=== PATIENT | female | born 1970 | race Caucasian/White ===

== ENCOUNTER 2018-10-16 17:03 | Emergency (ER) | payer MEDICARE, OTHER ==
[2018-10-16 17:10] VITALS: BMI 25.0
--- NOTE | 2018-10-16 17:49 | PDOC ---
History of Present Illness - General Chief Complaint: Pain, Acute Stated Complaint: ABDOMINAL PAIN Time Seen by Provider: 10/16/18 17:35 - History of Present Illness Initial Comments: 10/16/18 17:48 48 yo F with h/o DM, HLD, duodenal surgery, carcinoid tumor, left lung lobectomy , pacemaker placement, who p/w right flank pain. Patient reports 3 days of now stable, sharp, non pleuritic right >left flank pain, worse with supine positioning. Denies h/o similar presentation. On day 4/5 Oseltamavir for flu. Denies OTC analgesia for symptom control. Patient denies cough, wheezing, palpitations, N/V, F,C, CP, SOB, urinary complaints, hematuria, BPR, abdominal pain, diarrhea, constipation, lightheadedness, weakness, sensory changes. PMHx: as noted above. Denies h/o nephrolithiasis. ROS: as noted SHx: Distant smoking/tobacco history. Denies Etoh, IVDA Allergies: NKDA Past History - Past Medical History Allergies/Adverse Reactions: Allergies Allergy/AdvReac Type Severity Reaction Status Date / Time No Known Allergies Allergy Verified 10/16/18 17:10 Home Medications: Ambulatory Orders No Home Medications 05/20/12 Anemia: No Asthma: Yes Cancer: Yes (LUNG CA) Cardiac Disorders: No CVA: No COPD: No CHF: Yes (2000) Dementia: No Diabetes: No Dialysis: No GI Disorders: Yes (GASTRIC SLEEVE 2007) Disorders: No HTN: No Hypercholesterolemia: No Kidney Stones: No Liver Disease: No Seizures: No Thyroid Disease: No - Surgical History Abdominal Surgery: No Appendectomy: No Cardiac Surgery: No Cholecystectomy: No Lung Surgery: Yes (LEFT LUNG REMOVAL 1998) Neurologic Surgery: No Orthopedic Surgery: Yes (RIGHT KNEE ARTHROSCOPY) - Immunization History Td Vaccination: Yes TDAP Vaccination: No Immunization Up to Date: Yes - Suicide/Smoking/Psychosocial Hx Smoking Status: Yes Smoking History: Never smoked Years of Tobacco Use: 0 Have you smoked in the past 12 months: No Number of Cigarettes Smoked Daily: 0 Cigars Per Day: 0 Hx Alcohol Use: Yes (SOCIAL) Drug/Substance Use Hx: No Substance Use Type: None Hx Substance Use Treatment: No Review of Systems - Review of Systems Comments:: 10/16/18 17:48 GENERAL/CONSTITUTIONAL: No fever or chills. No weakness. HEAD, EYES, EARS, NOSE AND THROAT: No change in vision. No ear pain or discharge. No sore throat. CARDIOVASCULAR: No chest pain or shortness of breath RESPIRATORY: No cough, wheezing, or hemoptysis. GASTROINTESTINAL: No nausea, vomiting, diarrhea or constipation. GENITOURINARY: No dysuria, frequency, or change in urination. MUSCULOSKELETAL: + right flank ttp. No joint or muscle swelling or pain. No neck or back pain. SKIN: No rash NEUROLOGIC: No headache, vertigo, loss of consciousness, or change in strength/ sensation. ENDOCRINE: No increased thirst. No abnormal weight change HEMATOLOGIC/LYMPHATIC: No anemia, easy bleeding, or history of blood clots. ALLERGIC/IMMUNOLOGIC: No hives or skin allergy. *Physical Exam - Vital Signs Last Vital Signs Temp Pulse Resp BP Pulse Ox 97.4 F L 61 18 101/60 99 10/16/18 17:05 10/16/18 17:05 10/16/18 17:05 10/16/18 17:05 10/16/18 17:05 - Physical Exam Comments: 10/16/18 17:48 GENERAL: Awake, alert, and fully oriented, in no acute distress HEAD: No signs of trauma, normocephalic, atraumatic EYES: PERRLA, EOMI, sclera anicteric, conjunctiva clear ENT: Hearing grossly normal, nares patent, oropharynx clear without exudates. Moist mucosa NECK: Normal ROM, supple, no lymphadenopathy, JVD, or masses LUNGS: Diminished lung sound at Left LL base. No distress, speaks full sentences , clear to auscultation. HEART: Regular rate and rhythm, normal S1 and S2, no murmurs, rubs or gallops, peripheral pulses normal and equal bilaterally. ABDOMEN: + right CVA ttp. Soft, nontender, NDS, normoactive bowel sounds. No guarding, no rebound. No masses EXTREMITIES : Normal inspection, Normal range of motion, no edema. No clubbing or cyanosis. SKIN: Warm, Dry, normal turgor, no rashes or lesions noted Moderate Sedation - Procedure Monitoring Vital Signs: Procedure Monitoring Vital Signs Temperature 97.4 F L 10/16/18 17:05 Pulse Rate 61 10/16/18 17:05 Respiratory Rate 18 10/16/18 17:05 Blood Pressure 101/60 10/16/18 17:05 O2 Sat by Pulse Oximetry (%) 99 10/16/18 17:05 ED Treatment Course - LABORATORY CBC & Chemistry Diagram: 10/16/18 18:06 10/16/18 18:06 Medical Decision Making - Medical Decision Making 10/16/18 18:07 48 yo F with h/o DM, HLD, duodenal surgery, carcinoid tumor, left lung lobectomy , pacemaker placement, who p/w right flank pain. Vitals wnl, AF, A&Ox3. + Right CVA ttp. R/o obstructive uropathy vs. nephrolithaisis. Non toxic appearing, AF, absent urinary complaints. Low suspicion pyelonephritis. Will consider colitis, MSK related pain. ED Course: CBC,CMP, HCG, UA SPIRAL CT TORADOL, NS 10/16/18 18:10 10/16/18 19:19 CBC,CMP: Unremarkable HCG: Neg 10/16/18 19:37 BUN/CR: 13/0.6 UA: NEG 10/16/18 21:29 CT AP:Marked volume loss left hemithorax with mediastinal structures shifted to left. Neg hydronephrosis, no ureteral dilatation, no calculi. Patient pain improved Stable for d/c with return precautions. Advised to f/u with PMD. *DC/Admit/Observation/Transfer Diagnosis at time of Disposition: Flank pain - Discharge Dispostion Condition at time of disposition: Stable - Referrals - Patient Instructions Printed Discharge Instructions: DI for Abdominal Pain-Adult, DI for Flank Pain Additional Instructions: Please return to the emergency department with any new or worsening symptoms or concerns. Please follow up with your primary care physician within 72 hours. - Post Discharge Activity - Attestations Physician Attestion: 10/16/18 17:49 I attest to the information provided in this note.
[2018-10-16] MEDS ORDERED: SODIUM CHLORIDE 0.9% 500 ML INFUS.BAG IV ONE (18:01)
[2018-10-16] MEDS ORDERED: KETOROLAC TROMETHAMINE 30 MG/1 ML VIAL IVPUSH ONE (18:01)
[2018-10-16 18:22] LABS: BASO % 0.4 % (0-2.0); EOS % 1.5 % (0-4.5); HEMATOCRIT 39.2 % (32.4-45.2); HEMOGLOBIN 13.4 GM/dL (10.7-15.3); LYMPH % 21.4 % (8-40); MCH 28.9 pg (25.7-33.7); MCHC 34.3 g/dl (32.0-36.0); MEAN CELL VOLUME 84.2 fl (80-96); MEAN PLT VOLUME 9.5 fl (7.5-11.1); MONO % 18.3 % (3.8-10.2); NEUT % 58.4 % (42.8-82.8); PLATELET COUNT 151 K/MM3 (134-434); RBC 4.66 M/mm3 (3.60-5.2); RDW 14.1 % (11.6-15.6); WHITE BLOOD COUNT 4.4 K/mm3 (4.0-10.0)
[2018-10-16 18:35] LABS: URINE APPEARANCE SLCLOUDY; URINE BILIRUBIN NEGATIVE (<2.0 mg/dL); URINE COLOR AMBER; URINE GLUCOSE (UA) NEGATIVE (NEGATIVE); URINE KETONE NEGATIVE (NEGATIVE); URINE LEUK ESTERASE NEGATIVE (NEGATIVE); URINE NITRITE NEGATIVE (NEGATIVE); URINE PROTEIN 1+ (NEGATIVE); URINE UROBILINOGEN NEGATIVE mg/dL (0.2-1.0)
[2018-10-16 18:53] LABS: ALBUMIN 3.5 g/dl (3.4-5.0); ALK PHOS 65 U/L (45-117); ANION GAP 6 MMOL/L (8-16); BILIRUBIN,TOTAL 0.3 mg/dL (0.2-1); BLOOD UREA NITROGEN 13 mg/dL (7-18); CALCIUM 8.2 mg/dL (8.5-10.1); CHLORIDE 112 mmol/L (98-107); CO2 22 mmol/L (21-32); CREATININE 0.6 mg/dL (0.55-1.3); GLUCOSE,RANDOM 75 mg/dL (74-106); POTASSIUM 4.1 mmol/L (3.5-5.1); SGOT/AST 33 U/L (15-37); SGPT/ALT 23 U/L (13-61); SODIUM 139 mmol/L (136-145)
[2018-10-16 19:03] LABS: EPI CELLS RARE /HPF (FEW); URINE BACTERIA RARE /hpf (NONE SEEN); URINE HYALINE CAST 50 /lpf; URINE MUCUS MANY
--- NOTE | 2018-10-16 19:04 | PDOC ---
Attending Attestation - Resident Resident Name: JoshGusQuintin - ED Attending Attestation I have performed the following: I have examined & evaluated the patient, The case was reviewed & discussed with the resident, I agree w/resident's findings & plan - HPI HPI: 10/16/18 19:06 The patient is a 48 year old female, with a significant past medical history of DM, HLD, duodenal surgery, carcinoid tumor, left lung lobectomy, pacemaker placement, who presents to the emergency department with, 3 days of right left pain described as a pressure-like feeling. She was recently diagnosed with the flu on day 4 of 5 of Oseltamivir. She denies recent fevers, chills, headache or dizziness. She denies recent dysuria, frequency, urgency or hematuria. She denies recent chest pain or shortness of breath. Allergies: NKDA Past surgical history: None reported. Social history: Nonsmoker. Denies EtOH use and recreational drug use. <AnupambertkyungLorena - Last Filed: 10/16/18 22:29> - HPI HPI: Clarification- patient states her PMD placed her on tamiflu and abx when she presented to the office, however, she did not have a flu swab. She presents with flank pain and diarrhea. - Physicial Exam PE: GENERAL: Awake, alert, and fully oriented, in no acute distress HEAD: No signs of trauma EYES: PERRLA, EOMI, sclera anicteric, conjunctiva clear ENT: Auricles normal inspection, hearing grossly normal, nares patent, oropharynx clear without exudates. Moist mucosa NECK: Normal ROM, supple, no lymphadenopathy, JVD, or masses LUNGS: Breath sounds equal, clear to auscultation bilaterally. No wheezes, and no crackles HEART: Regular rate and rhythm, normal S1 and S2, no murmurs, rubs or gallops ABDOMEN: Soft, nontender, normoactive bowel sounds. No guarding, no rebound. No masses. +L CVAT. EXTREMITIES: Normal range of motion, no edema. No clubbing or cyanosis. No cords, erythema, or tenderness NEUROLOGICAL: Cranial nerves II through XII grossly intact. Normal speech, normal gait. Motor and sensation intact SKIN: Warm, Dry, normal turgor, no rashes or lesions noted. - Medical Decision Making Pt with history of prior weight loss surgery presenting with flank pain, diarrhea. She was placed on tamiflu and abx by her PMD, although the specific reasons were unclear. The diarrhea predated both medications. No recent abx otherwise, making CDiff less likely. Will obtain CT a/p to r/o nephrolithiasis. If she has another episode of diarrhea in ED, will obtain CDiff test. <Kailyn Ponce - Last Filed: 10/17/18 11:47> Attestations - Attestations 10/16/18 19:06 Documentation prepared by Lorena Cintron, acting as biomedical engineering internship for Kailyn Ponce MD. <Lorena Cintron - Last Filed: 10/16/18 22:29>
[2018-10-16] MEDS ORDERED: KETOROLAC TROMETHAMINE 30 MG/1 ML VIAL ONE (19:07)
--- NOTE | 2018-10-16 22:20 | PDOC ---
*Physical Exam - Vital Signs Last Vital Signs Temp Pulse Resp BP Pulse Ox 97.4 F L 61 18 101/60 99 10/16/18 17:05 10/16/18 17:05 10/16/18 17:05 10/16/18 17:05 10/16/18 17:05 ED Treatment Course - LABORATORY CBC & Chemistry Diagram: 10/16/18 18:06 10/16/18 18:06 - ADDITIONAL ORDERS Additional order review: Laboratory Results 10/16/18 10/16/18 10/16/18 18:06 18:06 18:06 Sodium 139 Potassium 4.1 Chloride 112 H Carbon Dioxide 22 Anion Gap 6 L BUN 13 Creatinine 0.6 Creat Clearance w eGFR > 60 Random Glucose 75 Calcium 8.2 L Total Bilirubin 0.3 AST 33 ALT 23 Alkaline Phosphatase 65 Total Protein 7.0 Albumin 3.5 Serum , Qual Negative Urine Color Odalis Urine Appearance Slcloudy Urine pH 5.0 Ur Specific [place] 1.025 Urine Protein 1+ H Urine Glucose (UA) Negative Urine Ketones Negative Urine Blood Negative Urine Nitrite Negative Urine Bilirubin Negative Urine Urobilinogen Negative Ur Leukocyte Esterase Negative Urine WBC (Auto) 12 Urine RBC (Auto) 3 Ur Epithelial Cells Rare Urine Bacteria Rare Hyaline Casts 50 Urine Mucus Many 10/16/18 18:06 RBC 4.66 MCV 84.2 MCHC 34.3 RDW 14.1 MPV 9.5 Neutrophils % 58.4 Lymphocytes % 21.4 Monocytes % 18.3 H D Eosinophils % 1.5 Basophils % 0.4 - Medications Given in the ED: ED Medications Discontinued Medications Generic Name Dose Route Start Last Admin Trade Name Alissa PRN Reason Stop Dose Admin Ketorolac Tromethamine 30 mg 10/16/18 18:01 10/16/18 19:05 Toradol Injection - IVPUSH 10/16/18 18:02 30 mg ONCE ONE Administration Sodium Chloride 1,000 ml 10/16/18 18:01 10/16/18 18:43 Normal Saline - IV 10/16/18 18:02 1,000 ml ONCE ONE Administration Medical Decision Making - Medical Decision Making 10/16/18 22:20 Patient Name: CARA TIERNEY THIS IS A PRELIMINARY REPORT FROM [facility] DATE OF SERVICE: 2018-10-16 19:43:10 IMAGES: 524 EXAM: CT abdomen/pelvis without contrast HISTORY: Right flank pain COMPARISON: None. FINDINGS: There is marked volume loss in the left hemithorax with shift of mediastinal structures to the left hemithorax. There is no hydronephrosis. There is no ureteral dilatation. There are no renal or ureteral calculi seen. There are multiple calcified gallstones. There are no secondary signs of cholecystitis. There is evidence of prior gastric bypass surgery. There is a low-density left adrenal nodule, likely adrenal adenoma. There is no evidence of intestinal obstruction. The appendix is normal in size. Urinary bladder is decompressed. There are no bladder calculi. There is an IUD in place. 1.8 cm left ovarian cyst noted *DC/Admit/Observation/Transfer Diagnosis at time of Disposition: Flank pain, Muscle pain - Discharge Dispostion Disposition: HOME Condition at time of disposition: Improved Decision to Admit order: No - Referrals - Patient Instructions Printed Discharge Instructions: DI for Flank Pain, DI for Muscle Strain Additional Instructions: Please return to the emergency department with any new or worsening symptoms or concerns. Please follow up with your primary care physician within 72 hours. - Post Discharge Activity
[2018-10-16] MEDS ORDERED: METHOCARBAMOL 500 MG TABLET PO ONE (22:32)
[2018-10-16] MEDS ORDERED: METHOCARBAMOL 500 MG TABLET ONE (22:34)
[2018-10-16 22:37] VITALS: BP 110/64; PULSE 65; TEMP 97.9
== END 2018-10-16 22:25 | disposition home or self-care (01) ==
LOC: JER 17:03
PROC: 3E0333Z Introduction of Anti-inflammatory into Peripheral Vein, Percutaneous Approach (ICD-10-PCS; principal; 2018-10-16)
PROC: 3E0337Z Introduction of Electrolytic and Water Balance Substance into Peripheral Vein, Percutaneous Approach (ICD-10-PCS; 2018-10-16)
DX: R10.31 Right lower quadrant pain (principal); R10.32 Left lower quadrant pain; E11.9 Type 2 diabetes mellitus without complications; E78.5 Hyperlipidemia, unspecified; Z95.0 Presence of cardiac pacemaker
CPT/HCPCS: 36415; 74176; 80053; 81003; 81015; 84703; 85025; 87086; 96361; 96374; 99285-25

== ENCOUNTER 2020-06-06 13:07 | Emergency (ER) | payer MEDICARE, OTHER ==
[2020-06-06 13:20] VITALS: BP 97/56; PULSE 86; TEMP 98.2; BMI 25.7
[2020-06-06 13:51] LABS: EPI CELLS 29 /uL (0-25.1); HYALINE CASTS 2 /uL (0-3.1); URINE APPEARANCE TURBID; URINE BACTERIA 3930 /uL (0-1359); URINE BILIRUBIN 1+ (NEGATIVE); URINE COLOR DK YELLOW; URINE GLUCOSE (UA) NEGATIVE (NEGATIVE); URINE KETONE TRACE (NEGATIVE); URINE LEUK ESTERASE 2+ (NEGATIVE); URINE NITRITE POSITIVE (NEGATIVE); URINE PROTEIN 3+ (NEGATIVE); URINE RBC 1500 /uL (0-23.9); URINE WBC 1424 /uL (0-25.8)
[2020-06-06] MEDS ORDERED: SULFAMETHOXAZOLE/TRIMETHOPRIM 800MG/160MG D.S. TABLET PO ONE (14:04)
[2020-06-06] MEDS ORDERED: SULFAMETHOXAZOLE/TRIMETHOPRIM 800MG/160MG D.S. TABLET ONE (14:12)
--- NOTE | 2020-06-06 14:12 | PDOC ---
History of Present Illness - General Chief Complaint: Urinary Problem Stated Complaint: PAINFUL URINATION Time Seen by Provider: 06/06/20 13:36 History Source: Patient Exam Limitations: No Limitations - History of Present Illness Initial Comments: 06/06/20 14:06 Patient is a 49-year-old female with a history of A. fib on Xarelto who presents to the ED with 2 days of dysuria, frequency, urgency and foul-smelling urine. She states today she woke up and she started to notice some hematuria. She does admit to dysuria mostly today only. She denies any fevers or chills. She denies any vaginal discharge or vaginal complaints. She does have an IUD in place. She has not taken anything for symptoms. She drinks a lot of water. She denies any nausea or vomiting, abdominal pain or back pain. Past History - Medical History Allergies/Adverse Reactions: Allergies Allergy/AdvReac Type Severity Reaction Status Date / Time No Known Allergies Allergy Verified 06/06/20 13:19 Home Medications: Ambulatory Orders No Home Medications 05/20/12 Methocarbamol [Robaxin -] 500 mg PO TID #30 tablet 10/16/18 Sulfamethoxazole/Trimethoprim [Bactrim Ds -] 1 tab PO BID 7 Days #14 tablet 06/06/20 Anemia: No Asthma: Yes Cancer: Yes (LUNG CA) Cardiac Disorders: No CVA: No COPD: No CHF: Yes (2000) Dementia: No Diabetes: No Dialysis: No GI Disorders: Yes (GASTRIC SLEEVE 2007) Disorders: No HTN: No Hypercholesterolemia: No Kidney Stones: No Liver Disease: No Seizures: No Thyroid Disease: No - Surgical History Abdominal Surgery: No Appendectomy: No Cardiac Surgery: No Cholecystectomy: No Lung Surgery: Yes (LEFT LUNG REMOVAL 1998) Neurologic Surgery: No Orthopedic Surgery: Yes (RIGHT KNEE ARTHROSCOPY) - Reproductive History Is Patient Now?: No - Immunization History Td Vaccination: Yes TDAP Vaccination: No Immunization Up to Date: Yes - Psycho-Social/Smoking History Smoking Status: Yes Smoking History: Former smoker Years of Tobacco Use: 0 Have you smoked in the past 12 months: No Number of Cigarettes Smoked Daily: 0 Cigars Per Day: 0 Information on smoking cessation initiated: No - Substance Abuse Hx (Audit-C & DAST Scrn) How often the patient has a drink containing alcohol: Never Score: In Men: 4 or > Positive; In Women: 3 or > Positive: 0 Screen Result (Pos requires Nsg. Audit-10AR): Negative Review of Systems - Review of Systems Comments:: 06/06/20 14:07 - Review of Systems Able to Perform ROS?: Yes Constitutional: No: Fever, Chills, Loss of Appetite, Night Sweats, Weakness HEENTM: No: Eye Pain, Vision changes, Ear Pain, Throat Pain, Throat Swelling, Mouth Pain, Difficulty Swallowing Respiratory: No: Cough, Shortness of Breath, Wheezing, Sputum Production Cardiac (ROS): No: Chest Pain, Chest Tightness, Palpitations, Irregular Heart Beat, Edema ABD/GI: No: Nausea, Vomiting, Abdominal Pain, Diarrhea : No Vaginal Discharge/Pain; Positive for dysuria, hematuria, frequency, urgency Musculoskeletal: No: Muscle Pain, Back Pain, Joint Pain, Muscle Weakness, Neck Pain Integumentary: No: Lesions, Rash Neurological: No: Headache, Numbness, Tingling, Weakness, Speech Difficulties Is the patient limited Liberian proficient: Yes *Physical Exam - Vital Signs Last Vital Signs Temp Pulse Resp BP Pulse Ox 98.2 F 86 17 97/56 L 100 06/06/20 13:16 06/06/20 13:16 06/06/20 13:16 06/06/20 13:16 06/06/20 13:16 - Physical Exam 06/06/20 14:08 - Physical Exam General Appearance: Nourished, Appropriately Dressed, No Distress HEENT: EOMI, Normal Voice, Hearing Grossly Normal Neck: Supple, No Lymphadenopathy (R), No Lymphadenopathy (L), No Rigidity, No Decreased range of motion Respiratory/Chest: Lungs Clear, Normal Breath Sounds. No Respiratory Distress, No Accessory Muscle Use Cardiovascular: Regular Rhythm, Regular Rate, S1, S2 Gastrointestinal/Abdominal: Normal Bowel Sounds, Soft. Non-tender, No Guarding, No Rebound, No Rigidity, no cva tenderness b/l, No suprapubic abdominal pain to palpation. Musculoskeletal: Normal Inspection. No Decreased Range of Motion Extremity: Normal Capillary Refill, Normal Inspection Integumentary: Normal Color, Dry. No Rash Neurologic: adjuster electrical contacts II-XII NML intact, Fully Oriented, Alert, Normal Mood/Affect, Normal Response ED Treatment Course - ADDITIONAL ORDERS Additional order review: Laboratory Results 06/06/20 06/06/20 13:35 13:35 Urine Color Dk yellow Urine Appearance Turbid Urine pH 5.0 Ur Specific [place] 1.025 Urine Protein 3+ H Urine Glucose (UA) Negative Urine Ketones Trace H Urine Blood 3+ H Urine Nitrite Positive H Urine Bilirubin 1+ H Urine Urobilinogen 1.0 Ur Leukocyte Esterase 2+ H Urine WBC (Auto) 1424 Urine RBC (Auto) 1500 Urine Casts (Auto) 2 U Epithel Cells (Auto) 29 Urine Bacteria (Auto) 3930 Urine HCG, Qual Negative Medical Decision Making - Medical Decision Making 06/06/20 14:09 Assessment: Patient is a 49-year-old female with dysuria, frequency, urgency, foul-smelling urine and hematuria since yesterday. Plan: -UA sent to the lab which shows a UTI -We will treat with Bactrim, no previous urine culture available -We will follow-up urine culture -Patient is hCG negative -Patient stable for discharge and advised to follow-up with her primary care doctor within 1 to 2 days for repeat evaluation. She has been made aware that we will call her if her urine culture shows sensitivity discrepancy. The patient understands and agrees with this treatment plan and she is stable for discharge. Discharge - Discharge Information Problems reviewed: Yes Clinical Impression/Diagnosis: UTI (urinary tract infection) Qualifiers: Urinary tract infection type: acute cystitis Hematuria presence: with hematuria Qualified Code(s): N30.01 - Acute cystitis with hematuria Condition: Stable Disposition: HOME - Additional Discharge Information Prescriptions: Sulfamethoxazole/Trimethoprim [Bactrim Ds -] 1 tab PO BID 7 Days #14 tablet - Follow up/Referral - Patient Discharge Instructions Patient Printed Discharge Instructions: DI for Urinary Tract Infection (UTI) Additional Instructions: Get plenty of rest and drink plenty of fluids. Be sure to take the antibiotics and complete the entire course even if you are feeling better. Follow-up with your primary care doctor within 3 to 4 days for repeat evaluation. Take Tylenol or ibuprofen for pain. - Post Discharge Activity Work/Back to School Note: Back to Work
== END 2020-06-06 14:17 | disposition home or self-care (01) ==
LOC: JERFT 13:07
DX: N30.01 Acute cystitis with hematuria (principal)
CPT/HCPCS: 81003; 84703; 87086; 87186; 99283-25

== ENCOUNTER 2020-10-14 20:12 | Emergency (ER) | payer MEDICARE, OTHER ==
[2020-10-14 20:27] VITALS: BP 107/63; PULSE 84; TEMP 98.3; BMI 23.6
[2020-10-14 22:11] LABS: EPI CELLS 6 /uL (0-25.1); HYALINE CASTS 6 /uL (0-3.1); URINE APPEARANCE CLEAR; URINE BACTERIA 5154 /uL (0-1359); URINE BILIRUBIN NEGATIVE (NEGATIVE); URINE COLOR YELLOW; URINE GLUCOSE (UA) NEGATIVE (NEGATIVE); URINE KETONE TRACE (NEGATIVE); URINE LEUK ESTERASE 2+ (NEGATIVE); URINE NITRITE NEGATIVE (NEGATIVE); URINE PROTEIN NEGATIVE (NEGATIVE); URINE RBC 34 /uL (0-23.9); URINE WBC 431 /uL (0-25.8)
[2020-10-14 22:12] LABS: HCG,QUALITATIVE URINE Negative
[2020-10-14] MEDS ORDERED: CEFUROXIME AXETIL 500 MG TABLET PO ONE (22:25)
[2020-10-14] MEDS ORDERED: PHENAZOPYRIDINE HCL 100 MG TABLET (FP) PO ONE (22:32)
== END 2020-10-14 23:04 | disposition home or self-care (01) ==
LOC: JER 20:12
DX: N39.0 Urinary tract infection, site not specified (principal)
CPT/HCPCS: 81003; 84703; 87086; 87186; 99283-25

== ENCOUNTER 2022-08-06 20:30 | Emergency (ER) | payer MEDICARE, OTHER ==
[2022-08-06 20:47] VITALS: BP 144/88; PULSE 78; RESP 15; TEMP 98; BMI 21.6
[2022-08-06] MEDS ORDERED: ASPIRIN 81 MG CHEWABLE TABLETS PO ONE (21:18)
[2022-08-06] MEDS ORDERED: ACETAMINOPHEN 500 MG TABLET (FP) PO ONE (21:18)
[2022-08-06] MEDS ORDERED: ACETAMINOPHEN 325 MG TABLET (FP) ONE (21:23)
[2022-08-06] MEDS ORDERED: ASPIRIN 81 MG CHEWABLE TABLETS ONE (21:23)
[2022-08-06] MEDS ORDERED: ALBUTEROL SO4 2.5/IPRATROPIUM 0.5 INH SOL 3 ML VIAL.NEB. NEB ONE (21:39)
[2022-08-06] MEDS: ALBUTEROL SO4 2.5/IPRATROPIUM 0.5 INH SOL 3 ML VIAL.NEB. NEB SCH (21:45)
[2022-08-06 21:48] LABS: BASO % 0.7 % (0-2.0); EOS % 1.5 % (0-4.5); HEMOGLOBIN 16.2 GM/dL (10.7-15.3); LYMPH % 20.4 % (8-40); MCH 28.7 pg (25.7-33.7); MCHC 32.4 g/dl (32.0-36.0); MEAN CELL VOLUME 88.6 fl (80-96); MEAN PLT VOLUME 8.6 fl (7.5-11.1); MONO % 10.1 % (3.8-10.2); NEUT % 67.3 % (42.8-82.8); PLATELET COUNT 141 10^3/uL (134-434); RBC 5.65 M/mm3 (3.60-5.2); RDW 15.5 % (11.6-15.6); WHITE BLOOD COUNT 6.9 K/mm3 (4.0-10.0)
[2022-08-06] MEDS ORDERED: SODIUM CHLORIDE 0.9% 500 ML INFUS.BAG IV ONE (21:58)
[2022-08-06 22:01] LABS: INR 1.02 (0.83-1.09); PROTHROMBIN TIME (PATIENT) 11.7 SEC (9.7-13.0)
[2022-08-06 22:03] LABS: ACTIVATED PTT 32.1 SECONDS (25.2-36.5)
[2022-08-06 22:15] LABS: BLOOD UREA NITROGEN 14.5 mg/dL (7-18); CALCIUM 8.9 mg/dL (8.5-10.1)
[2022-08-06 22:16] LABS: ALBUMIN 3.6 g/dl (3.4-5.0)
[2022-08-06 22:19] LABS: CREATININE 0.6 mg/dL (0.55-1.3)
[2022-08-06 22:20] LABS: BILIRUBIN,TOTAL 0.4 mg/dL (0.2-1); TOT PROT 7.1 g/dl (6.4-8.2)
== END 2022-08-06 23:27 | disposition left against medical advice (07) ==
LOC: JER 20:30
PROC: 3E0F7GC Introduction of Other Therapeutic Substance into Respiratory Tract, Via Natural or Artificial Opening (ICD-10-PCS; principal; 2022-08-06)
DX: R07.9 Chest pain, unspecified (principal)
CPT/HCPCS: 0241U-QW; 36415; 71046-TC-FY; 80053; 82550; 84484; 85025; 85610; 85730; 93005; 93010; 94640; 99285-25

== ENCOUNTER 2022-09-02 19:06 | Observation (INO) | payer MEDICARE, OTHER ==
[2022-09-02] MEDS ORDERED: ACETAMINOPHEN 1000 MG/100 ML BAG IVPB ONE (19:59)
[2022-09-02] MEDS ORDERED: ACETAMINOPHEN INJECTION 100 ML IVPB ONE (20:29)
[2022-09-02] MEDS ORDERED: LORazepam 2 MG/ML SDV VIAL IM ONE (20:38)
[2022-09-02] MEDS ORDERED: HALOPERIDOL LACTATE 5 MG/ML IM ONE ×2 (20:38→20:40)
[2022-09-02 22:11] LABS: BASO % 0.4 % (0-2.0); EOS % 0.7 % (0-4.5); HEMATOCRIT 44.9 % (32.4-45.2); HEMOGLOBIN 14.9 GM/dL (10.7-15.3); LYMPH % 12.7 % (8-40); MCH 28.8 pg (25.7-33.7); MCHC 33.1 g/dl (32.0-36.0); MEAN CELL VOLUME 86.9 fl (80-96); MEAN PLT VOLUME 8.5 fl (7.5-11.1); MONO % 7.1 % (3.8-10.2); NEUT % 79.1 % (42.8-82.8); PLATELET COUNT 155 10^3/uL (134-434); RBC 5.17 M/mm3 (3.60-5.2); RDW 15.1 % (11.6-15.6); WHITE BLOOD COUNT 8.9 K/mm3 (4.0-10.0)
[2022-09-02 22:20] LABS: INR 1.05 (0.83-1.09); PROTHROMBIN TIME (PATIENT) 12.1 SEC (9.7-13.0)
[2022-09-02 22:23] LABS: ACTIVATED PTT 29.3 SECONDS (25.2-36.5)
[2022-09-02 22:40] LABS: CHLORIDE 110 mmol/L (98-107); SODIUM 142 mmol/L (136-145)
[2022-09-02 22:42] LABS: CALCIUM 8.4 mg/dL (8.5-10.1)
[2022-09-02 22:43] LABS: ALBUMIN 3.3 g/dl (3.4-5.0); ANION GAP 7 MMOL/L (8-16); CO2 26 mmol/L (21-32); GLUCOSE,RANDOM 85 mg/dL (74-106)
[2022-09-02 22:46] LABS: CREATININE 0.4 mg/dL (0.55-1.3); SGOT/AST 33 U/L (15-37); SGPT/ALT 42 U/L (13-61)
[2022-09-02 22:47] LABS: TOT PROT 6.4 g/dl (6.4-8.2)
[2022-09-02 22:48] LABS: BILIRUBIN,TOTAL 0.3 mg/dL (0.2-1)
[2022-09-02 22:49] LABS: ALK PHOS 136 U/L (45-117)
[2022-09-02 22:50] LABS: EPI CELLS 10 /uL (0-25.1); HYALINE CASTS 0 /uL (0-3.1); URINE APPEARANCE CLEAR; URINE BACTERIA 6 /uL (0-1359); URINE BILIRUBIN NEGATIVE (NEGATIVE); URINE COLOR YELLOW; URINE GLUCOSE (UA) NEGATIVE (NEGATIVE); URINE KETONE TRACE (NEGATIVE); URINE LEUK ESTERASE 1+ (NEGATIVE); URINE NITRITE NEGATIVE (NEGATIVE); URINE PROTEIN NEGATIVE (NEGATIVE); URINE RBC 8 /uL (0-23.9); URINE UROBILINOGEN 0.2 mg/dL (0.2-1.0); URINE WBC 75 /uL (0-25.8)
[2022-09-02 22:58] LABS: COCAINE, UR NEGATIVE (NEGATIVE); OPIATES, URI NEGATIVE (NEGATIVE); URINE AMPHETAMINES NEGATIVE (NEGATIVE)
[2022-09-02 22:59] LABS: PHENCYCLIDINE,URINE NEGATIVE (NEGATIVE)
[2022-09-02 23:02] LABS: URINE BARBITURATES NEGATIVE (NEGATIVE)
[2022-09-02 23:08] LABS: METHADONE, UR NEGATIVE (NEGATIVE); URINE BENZODIAZEPINES NEGATIVE (NEGATIVE)
[2022-09-02] MEDS ORDERED: DIPHTH,PERTUSS(ACELL),TET 0.5 ML DISP.SYRIN IM ONE ×2 (23:17→23:30)
[2022-09-03] MEDS ORDERED: LACTATED RINGERS SOLUTION 1,000 ML IV SCH (00:45)
[2022-09-03 04:48] VITALS: PULSE 60; BMI 21.4
[2022-09-03] MEDS ORDERED: INSULIN SLIDING SCALE (NOVOLOG) 1 VIAL SQ SCH (07:00)
[2022-09-03 08:18] LABS: BASO % 0.7 % (0-2.0); EOS % 1.6 % (0-4.5); HEMATOCRIT 43.9 % (32.4-45.2); HEMOGLOBIN 14.3 GM/dL (10.7-15.3); LYMPH % 15.2 % (8-40); MCH 28.1 pg (25.7-33.7); MCHC 32.6 g/dl (32.0-36.0); MEAN CELL VOLUME 86.1 fl (80-96); MONO % 10.3 % (3.8-10.2); NEUT % 72.2 % (42.8-82.8); PLATELET COUNT 157 10^3/uL (134-434); RBC 5.09 M/mm3 (3.60-5.2); RDW 15.4 % (11.6-15.6); WHITE BLOOD COUNT 7.7 K/mm3 (4.0-10.0)
[2022-09-03 08:50] LABS: CALCIUM 8.1 mg/dL (8.5-10.1)
[2022-09-03 08:51] LABS: ALBUMIN 3.1 g/dl (3.4-5.0); BLOOD UREA NITROGEN 12.3 mg/dL (7-18); MAGNESIUM 2.2 mg/dL (1.8-2.4)
[2022-09-03 08:54] LABS: CREATININE 0.4 mg/dL (0.55-1.3); PHOSPHOROUS 3.4 mg/dL (2.5-4.9)
[2022-09-03 08:56] LABS: BILIRUBIN,TOTAL 0.6 mg/dL (0.2-1); TOT PROT 6.1 g/dl (6.4-8.2)
[2022-09-03 09:01] LABS: CHOLESTEROL 117 mg/dL (50-200); TRIGLYCERIDES 81 mg/dL (0-150)
[2022-09-03 09:02] LABS: LDL CHOLESTEROL (ONLY SJRH) 74 mg/dL (5-100)
[2022-09-03 09:04] LABS: HDL CHOLESTEROL 38 mg/dL (40-60)
[2022-09-03] MEDS ORDERED: CEFTRIAXONE 1,000 MG in DEXTROSE 5%-WATER - 50 ML IVPB SCH (10:00)
[2022-09-03] MEDS ORDERED: CEFTRIAXONE 1 GM in DEXTROSE 5%-WATER - 50 ML IVPB SCH (10:00)
[2022-09-03 10:34] VITALS: BP 100/58; RESP 18; TEMP 98.7
== END 2022-09-03 11:01 | disposition left against medical advice (07) ==
LOC: JER 19:06 → JERBED 22:58 → INTOOBSV 22:58 → J4W 09-03 02:35
PROVIDERS: ADMIT Internal Medicine; ATTEND Internal Medicine
PROC: 0HQ0XZZ Repair Scalp Skin, External Approach (ICD-10-PCS; principal; 2022-09-02)
PROC: 3E03329 Introduction of Other Anti-infective into Peripheral Vein, Percutaneous Approach (ICD-10-PCS; 2022-09-02)
PROC: 3E033NZ Introduction of Analgesics, Hypnotics, Sedatives into Peripheral Vein, Percutaneous Approach (ICD-10-PCS; 2022-09-02)
PROC: 3E023GC Introduction of Other Therapeutic Substance into Muscle, Percutaneous Approach (ICD-10-PCS; 2022-09-02)
PROC: 3E0234Z Introduction of Serum, Toxoid and Vaccine into Muscle, Percutaneous Approach (ICD-10-PCS; 2022-09-02)
PROC: 3E0337Z Introduction of Electrolytic and Water Balance Substance into Peripheral Vein, Percutaneous Approach (ICD-10-PCS; 2022-09-02)
PROC: 3E023NZ Introduction of Analgesics, Hypnotics, Sedatives into Muscle, Percutaneous Approach (ICD-10-PCS; 2022-09-02)
DX: S02.40FA Zygomatic fracture, left side, initial encounter for closed fracture (principal); S09.90XA Unspecified injury of head, initial encounter; W18.39XA Other fall on same level, initial encounter; Y93.89 Activity, other specified; Y92.69 Other specified industrial and construction area as the place of occurrence of the external cause; I48.91 Unspecified atrial fibrillation; Z79.01 Long term (current) use of anticoagulants; D3A.00 Benign carcinoid tumor of unspecified site; R55 Syncope and collapse; E11.9 Type 2 diabetes mellitus without complications; E78.5 Hyperlipidemia, unspecified; Z95.0 Presence of cardiac pacemaker; R45.1 Restlessness and agitation
CPT/HCPCS: 12001-25; 36415; 70450-TC; 70486-TC; 71045-TC-FY; 72125-TC; 72128-TC; 72131-TC; 72170-TC-FY; 73502-TC-RT-FY; 73552-TC-LT-FY; 73552-TC-RT-FY; 80053; 80061; 80307; 81003; 82962; 83036; 83735; 84100; 84443; 84484; 84703; 85025; 85610; 85730; 86850; 86900; 86901; 87086; 90471; 90715; 93005; 93010; 96361; 96365; 96372; 96375; 99285-25; C9803-CS; G0378; U0003; U0005

== ENCOUNTER 2023-03-08 20:08 | Emergency (ER) | payer MEDICARE, OTHER ==
[2023-03-08 20:33] VITALS: BP 112/67; PULSE 71; RESP 18; TEMP 98.5; BMI 20.7
== END 2023-03-08 21:33 | disposition home or self-care (01) ==
LOC: JER 20:08 → JERFT 20:08
DX: M79.645 Pain in left finger(s) (principal); L03.012 Cellulitis of left finger; M79.89 Other specified soft tissue disorders; L02.512 Cutaneous abscess of left hand
CPT/HCPCS: 87070; 87205; 99283-25

== ENCOUNTER 2023-03-18 21:26 | Emergency (ER) | payer MEDICARE, OTHER ==
[2023-03-18 21:31] VITALS: BP 105/63; PULSE 76; RESP 18; TEMP 98.2; BMI 20.7
[2023-03-18] MEDS ORDERED: METOCLOPRAMIDE HCL INJECTION 10 MG/2 ML VIAL IVPUSH ONE (22:14)
[2023-03-18] MEDS ORDERED: ACETAMINOPHEN 1000 MG/100 ML BAG IVPB ONE (22:14)
[2023-03-18] MEDS ORDERED: METOCLOPRAMIDE HCL INJECTION 10 MG/2 ML VIAL ONE (22:28)
[2023-03-18] MEDS ORDERED: ACETAMINOPHEN INJECTION 100 ML IVPB ONE (22:29)
[2023-03-18 22:36] LABS: BASO % 0.9 % (0-2.0); HEMATOCRIT 42.3 % (32.4-45.2); LYMPH % 19.7 % (8-40); MCH 28.1 pg (25.7-33.7); MEAN CELL VOLUME 85.3 fl (80-96); MONO % 8.2 % (3.8-10.2); NEUT % 68.2 % (42.8-82.8); PLATELET COUNT 201 10^3/uL (134-434); RBC 4.96 M/mm3 (3.60-5.2); RDW 14.6 % (11.6-15.6); WHITE BLOOD COUNT 10.4 K/mm3 (4.0-10.0)
[2023-03-18 22:56] LABS: POTASSIUM 4.7 mmol/L (3.5-5.1)
[2023-03-18 22:58] LABS: ALBUMIN 3.3 g/dl (3.4-5.0); BLOOD UREA NITROGEN 14.9 mg/dL (7-18); CALCIUM 8.5 mg/dL (8.5-10.1)
[2023-03-18 23:02] LABS: CREATININE 0.6 mg/dL (0.55-1.3)
[2023-03-18 23:03] LABS: BILIRUBIN,TOTAL 0.2 mg/dL (0.2-1); TOT PROT 6.8 g/dl (6.4-8.2)
[2023-03-18] MEDS ORDERED: ALBUTEROL SO4 2.5/IPRATROPIUM 0.5 INH SOL 3 ML VIAL.NEB. NEB SCH (23:15)
== END 2023-03-19 00:08 | disposition left against medical advice (07) ==
LOC: JER 21:26
PROC: 3E033NZ Introduction of Analgesics, Hypnotics, Sedatives into Peripheral Vein, Percutaneous Approach (ICD-10-PCS; principal; 2023-03-18)
PROC: 3E033GC Introduction of Other Therapeutic Substance into Peripheral Vein, Percutaneous Approach (ICD-10-PCS; 2023-03-18)
PROC: 3E0F7GC Introduction of Other Therapeutic Substance into Respiratory Tract, Via Natural or Artificial Opening (ICD-10-PCS; 2023-03-18)
DX: R51.9 Headache, unspecified (principal); R07.9 Chest pain, unspecified; R05.9 Cough, unspecified
CPT/HCPCS: 36415; 70450-TC; 80053; 84484; 85025; 93005; 93010; 94640; 96374; 96375; 99284-25

== ENCOUNTER 2023-04-15 23:14 | Emergency (ER) | payer MEDICARE, OTHER ==
[2023-04-15 23:22] VITALS: BP 105/56; PULSE 67; RESP 18; TEMP 98.3; BMI 20.7
[2023-04-16] MEDS ORDERED: FAMOTIDINE 20 MG/50 ML IVPB 20 MG/50 ML MG IVPB ONE (00:18)
[2023-04-16] MEDS ORDERED: methylPREDNISolone NA SUCC 125 MG/2 ML VIAL IVPB ONE (00:18)
[2023-04-16] MEDS ORDERED: SODIUM CHLORIDE 0.9% 1000 ML INFUS.BAG IV ONE (00:18)
[2023-04-16] MEDS ORDERED: methylPREDNISolone NA SUCC 125 MG/2 ML VIAL ONE (00:40)
[2023-04-16] MEDS ORDERED: FAMOTIDINE 10 MG/ML VIAL IVPB ONE (01:03)
[2023-04-16 01:29] LABS: BASO % 0.6 % (0-2.0); EOS % 2.4 % (0-4.5); HEMATOCRIT 39.9 % (32.4-45.2); LYMPH % 22.1 % (8-40); MCH 27.7 pg (25.7-33.7); MCHC 32.6 g/dl (32.0-36.0); MEAN CELL VOLUME 85.1 fl (80-96); MEAN PLT VOLUME 9.1 fl (7.5-11.1); MONO % 9.2 % (3.8-10.2); NEUT % 65.7 % (42.8-82.8); PLATELET COUNT 161 10^3/uL (134-434); RBC 4.69 M/mm3 (3.60-5.2); RDW 14.8 % (11.6-15.6); WHITE BLOOD COUNT 8.4 K/mm3 (4.0-10.0)
[2023-04-16 01:49] LABS: POTASSIUM 4.2 mmol/L (3.5-5.1)
[2023-04-16 01:51] LABS: CALCIUM 8.3 mg/dL (8.5-10.1)
[2023-04-16 01:52] LABS: ALBUMIN 3.2 g/dl (3.4-5.0)
[2023-04-16 01:55] LABS: CREATININE 0.7 mg/dL (0.55-1.3)
[2023-04-16 01:56] LABS: BILIRUBIN,TOTAL 0.2 mg/dL (0.2-1); TOT PROT 6.2 g/dl (6.4-8.2)
== END 2023-04-16 02:29 | disposition home or self-care (01) ==
LOC: JER 23:14
PROC: 3E033GC Introduction of Other Therapeutic Substance into Peripheral Vein, Percutaneous Approach (ICD-10-PCS; principal; 2023-04-16)
PROC: 3E033GC Introduction of Other Therapeutic Substance into Peripheral Vein, Percutaneous Approach (ICD-10-PCS; 2023-04-16)
PROC: 3E033GC Introduction of Other Therapeutic Substance into Peripheral Vein, Percutaneous Approach (ICD-10-PCS; 2023-04-16)
DX: R22.42 Localized swelling, mass and lump, left lower limb (principal); L29.9 Pruritus, unspecified
CPT/HCPCS: 36415; 80053; 85025; 96365; 96375; 99284-25

== ENCOUNTER 2023-05-19 02:05 | Emergency (ER) | payer MEDICARE, OTHER ==
[2023-05-19 02:18] VITALS: BP 102/50; PULSE 75; RESP 18; TEMP 98.1; BMI 21.6
[2023-05-19] MEDS ORDERED: LIDOCAINE HCL 2% JELLY 10 ML CARTRIDGE PR ONE (02:59)
[2023-05-19] MEDS ORDERED: ONDANSETRON *ODT* 4 MG TABLET SL ONE (03:20)
[2023-05-19] MEDS ORDERED: ONDANSETRON *ODT* 4 MG TABLET ONE (03:32)
== END 2023-05-19 03:41 | disposition home or self-care (01) ==
LOC: JER 02:05
DX: K62.89 Other specified diseases of anus and rectum (principal)
CPT/HCPCS: 99283-25; Q0162

== ENCOUNTER 2023-07-10 19:47 | Emergency (ER) | payer MEDICARE, OTHER ==
[2023-07-10 19:52] VITALS: TEMP 98.5; BMI 22.4
[2023-07-10] MEDS ORDERED: methylPREDNISolone NA SUCC 125 MG/2 ML VIAL IVPUSH ONE (20:29)
[2023-07-10] MEDS ORDERED: methylPREDNISolone NA SUCC 125 MG/2 ML VIAL ONE (20:37)
[2023-07-10] MEDS ORDERED: ALBUTEROL SO4 2.5/IPRATROPIUM 0.5 INH SOL 3 ML VIAL.NEB. NEB ONE (20:37)
[2023-07-10] MEDS ORDERED: ACETAMINOPHEN 1000 MG/100 ML BAG IVPB ONE (20:47)
[2023-07-10] MEDS: ALBUTEROL SO4 2.5/IPRATROPIUM 0.5 INH SOL 3 ML VIAL.NEB. NEB SCH ×4 (20:51→21:36)
[2023-07-10] MEDS ORDERED: ACETAMINOPHEN INJECTION 100 ML IVPB ONE (20:56)
[2023-07-10 21:08] LABS: BASO % 0.5 % (0-2.0); EOS % 1.9 % (0-4.5); HEMATOCRIT 41.9 % (32.4-45.2); HEMOGLOBIN 13.9 GM/dL (10.7-15.3); LYMPH % 22.2 % (8-40); MCH 26.7 pg (25.7-33.7); MCHC 33.1 g/dl (32.0-36.0); MEAN CELL VOLUME 80.6 fl (80-96); MEAN PLT VOLUME 8.2 fl (7.5-11.1); MONO % 17.7 % (3.8-10.2); NEUT % 57.7 % (42.8-82.8); PLATELET COUNT 185 10^3/uL (134-434); RDW 16.5 % (11.6-15.6); WHITE BLOOD COUNT 5.5 K/mm3 (4.0-10.0)
[2023-07-10 21:15] LABS: INR 0.98 (0.83-1.09); PROTHROMBIN TIME (PATIENT) 11.4 SEC (9.7-13.0)
[2023-07-10 21:17] LABS: ACTIVATED PTT 30.3 SECONDS (25.2-36.5)
[2023-07-10 21:41] LABS: POTASSIUM 5.4 mmol/L (3.5-5.1)
[2023-07-10 21:43] LABS: CALCIUM 8.3 mg/dL (8.5-10.1)
[2023-07-10 21:44] LABS: ALBUMIN 3.3 g/dl (3.4-5.0); BLOOD UREA NITROGEN 14.3 mg/dL (7-18)
[2023-07-10 21:47] LABS: CREATININE 0.6 mg/dL (0.55-1.3)
[2023-07-10 21:48] LABS: BILIRUBIN,TOTAL 0.2 mg/dL (0.2-1); TOT PROT 6.8 g/dl (6.4-8.2)
[2023-07-10 21:52] LABS: N-TERMINAL BNP 267.5 pg/ml (5-125)
[2023-07-10] MEDS ORDERED: LACTATED RINGERS SOLUTION 1000 ML INFUS.BAG IV ONE (22:47)
[2023-07-11 00:52] VITALS: BP 103/56; PULSE 69; RESP 18
== END 2023-07-11 02:33 | disposition left against medical advice (07) ==
LOC: JER 19:47
PROC: 3E033NZ Introduction of Analgesics, Hypnotics, Sedatives into Peripheral Vein, Percutaneous Approach (ICD-10-PCS; principal; 2023-07-10)
PROC: 3E033GC Introduction of Other Therapeutic Substance into Peripheral Vein, Percutaneous Approach (ICD-10-PCS; 2023-07-10)
PROC: 3E0F7GC Introduction of Other Therapeutic Substance into Respiratory Tract, Via Natural or Artificial Opening (ICD-10-PCS; 2023-07-10)
DX: R06.02 Shortness of breath (principal); R07.89 Other chest pain; R05.9 Cough, unspecified; Z20.822 Contact with and (suspected) exposure to COVID-19
CPT/HCPCS: 0241U-QW; 36415; 71045-TC-FY; 71275-TC; 80053; 83880; 84484; 85025; 85610; 85730; 93005; 93010; 94640; 96374; 96375; 99285-25; Q9967

== ENCOUNTER 2023-09-16 21:07 | Inpatient (IN) | payer MEDICARE, OTHER ==
[2023-09-16 21:43] LABS: BASO % 0.8 % (0-2.0); HEMATOCRIT 41.3 % (32.4-45.2); HEMOGLOBIN 13.4 GM/dL (10.7-15.3); LYMPH % 28.7 % (8-40); MCH 26.2 pg (25.7-33.7); MCHC 32.5 g/dl (32.0-36.0); MEAN CELL VOLUME 80.5 fl (80-96); MEAN PLT VOLUME 8.1 fl (7.5-11.1); MONO % 9.7 % (3.8-10.2); NEUT % 58.8 % (42.8-82.8); PLATELET COUNT 161 10^3/uL (134-434); RBC 5.13 M/mm3 (3.60-5.2); RDW 17.4 % (11.6-15.6); WHITE BLOOD COUNT 8.2 K/mm3 (4.0-10.0)
[2023-09-16] MEDS ORDERED: TENECTEPLASE 50 MG VIAL IVPUSH ONE ×2 (21:47→21:51)
[2023-09-16 21:54] LABS: INR 1.05 (0.83-1.09); PROTHROMBIN TIME (PATIENT) 12.2 SEC (9.7-13.0)
[2023-09-16 21:57] LABS: ACTIVATED PTT 29.5 SECONDS (25.2-36.5)
[2023-09-16] MEDS ORDERED: LORazepam 2 MG/ML SDV VIAL IVPUSH ONE (22:02)
[2023-09-16] MEDS ORDERED: HALOPERIDOL LACTATE 5 MG/ML IM ONE (22:03)
[2023-09-16] MEDS ORDERED: HALOPERIDOL LACTATE 5 MG/ML ONE (22:03)
[2023-09-16] MEDS ORDERED: ACETAMINOPHEN 325 MG TABLET (FP) PO PRN (22:26)
[2023-09-16 22:58] VITALS: BMI 23.8
[2023-09-16 23:11] LABS: POTASSIUM 4.6 mmol/L (3.5-5.1)
[2023-09-16 23:23] LABS: CALCIUM 8.2 mg/dL (8.5-10.1)
[2023-09-16] MEDS ORDERED: SODIUM CHLORIDE 0.9% 500 ML INFUS.BAG IV ONE (23:27)
[2023-09-16 23:47] LABS: ALBUMIN 3.3 g/dl (3.4-5.0)
[2023-09-16 23:49] LABS: CREATININE 0.7 mg/dL (0.55-1.3)
[2023-09-16 23:50] LABS: BILIRUBIN,TOTAL 0.3 mg/dL (0.2-1); TOT PROT 6.5 g/dl (6.4-8.2)
[2023-09-17 00:15] LABS: EPI CELLS 17 /uL (0-25.1); HYALINE CASTS 1 /uL (0-3.1); PH,URINE 6.5 (5.0-8.0); URINE APPEARANCE CLEAR; URINE BACTERIA 30 /uL (0-1359); URINE BILIRUBIN NEGATIVE (NEGATIVE); URINE COLOR YELLOW; URINE GLUCOSE (UA) NEGATIVE (NEGATIVE); URINE KETONE NEGATIVE (NEGATIVE); URINE LEUK ESTERASE 1+ (NEGATIVE); URINE NITRITE NEGATIVE (NEGATIVE); URINE PROTEIN NEGATIVE (NEGATIVE); URINE RBC 32 /uL (0-23.9); URINE WBC 32 /uL (0-25.8)
[2023-09-17 00:38] LABS: COCAINE, UR NEGATIVE (NEGATIVE); METHADONE, UR NEGATIVE (NEGATIVE); OPIATES, URI NEGATIVE (NEGATIVE); PHENCYCLIDINE,URINE NEGATIVE (NEGATIVE); URINE AMPHETAMINES NEGATIVE (NEGATIVE); URINE BARBITURATES NEGATIVE (NEGATIVE); URINE BENZODIAZEPINES NEGATIVE (NEGATIVE)
[2023-09-17] MEDS ORDERED: CEFTRIAXONE 1 GM in DEXTROSE 5%-WATER - 50 ML IVPB ONE ×2 (05:25→06:30)
[2023-09-17 05:40] VITALS: TEMP 98.1
[2023-09-17 09:17] VITALS: BP 105/60; PULSE 72; RESP 18
[2023-09-17] MEDS ORDERED: MUPIROCIN 2% TOPICAL OINTMENT FOR DECOLONIZATION NS SCH (10:00)
[2023-09-17] MEDS ORDERED: ASPIRIN COATED 81 MG TABLET.EC PO SCH (10:00)
[2023-09-17] MEDS ORDERED: ATORVASTATIN CA 80 MG TABLET (FP) PO SCH (22:00)
[2023-09-17] MEDS ORDERED: CHLORHEXIDINE GLUCONATE 4% CLEANSER FOR DECOLONIZATION TP SCH (22:00)
[2023-09-18] MEDS ORDERED: ASPIRIN COATED 81 MG TABLET.EC PO SCH (10:00)
== END 2023-09-17 10:39 | disposition left against medical advice (07) | DRG 65 ==
LOC: JER 21:07 → JERBED 22:23 → JICU 09-17 03:33
PROVIDERS: ADMIT Internal Medicine Pulmonary Disease; ATTEND Internal Medicine Pulmonary Disease
DX: I63.9 Cerebral infarction, unspecified (principal); G81.91 Hemiplegia, unspecified affecting right dominant side; E11.9 Type 2 diabetes mellitus without complications; E78.5 Hyperlipidemia, unspecified; R29.709 NIHSS score 9
CPT/HCPCS: 0241U-QW; 36415; 70450-TC; 70496-TC; 70498-TC; 80053; 80061; 80307; 81003; 82550; 82962; 83036; 84443; 84484; 85025; 85610; 85730; 86850; 86900; 86901; 93005; 93010; 99291; J3101

== ENCOUNTER 2023-11-29 00:55 | Emergency (ER) | payer MEDICARE, OTHER ==
[2023-11-29 01:09] VITALS: BP 110/76; PULSE 61; RESP 20; TEMP 97.8; BMI 21.6
[2023-11-29] MEDS ORDERED: LIDOCAINE 4% PATCH TP ONE (02:18)
[2023-11-29] MEDS: LIDOCAINE 5% TOPICAL PATCH TP ONE (02:19)
[2023-11-29] MEDS ORDERED: KETOROLAC TROMETHAMINE 30 MG/1 ML VIAL ONE (02:32)
[2023-11-29] MEDS: KETOROLAC TROMETHAMINE 15 MG/ML VIAL IM ONE (02:35)
[2023-11-29 02:44] LABS: EPI CELLS 8 /uL (0-25.1); HYALINE CASTS 0 /uL (0-3.1); PH,URINE 7.5 (5.0-8.0); URINE APPEARANCE CLEAR; URINE BACTERIA 5 /uL (0-1359); URINE BILIRUBIN NEGATIVE (NEGATIVE); URINE COLOR YELLOW; URINE GLUCOSE (UA) NEGATIVE (NEGATIVE); URINE KETONE NEGATIVE (NEGATIVE); URINE LEUK ESTERASE 1+ (NEGATIVE); URINE NITRITE NEGATIVE (NEGATIVE); URINE PROTEIN NEGATIVE (NEGATIVE); URINE RBC 19 /uL (0-23.9); URINE WBC 27 /uL (0-25.8)
[2023-11-29] MEDS ORDERED: LIDOCAINE PATCH REMOVAL MC SCH (22:00)
== END 2023-11-29 03:07 | disposition home or self-care (01) ==
LOC: JER 00:55
PROC: 3E0233Z Introduction of Anti-inflammatory into Muscle, Percutaneous Approach (ICD-10-PCS; principal; 2023-11-29)
DX: S39.92XA Unspecified injury of lower back, initial encounter (principal); M53.3 Sacrococcygeal disorders, not elsewhere classified; M54.50 Low back pain, unspecified; X58.XXXA Exposure to other specified factors, initial encounter
CPT/HCPCS: 81003; 87086; 96372; 99284-25

== ENCOUNTER 2023-12-04 21:39 | Emergency (ER) | payer MEDICARE, OTHER ==
[2023-12-04 21:43] VITALS: TEMP 97.8; BMI 21.6
[2023-12-04] MEDS ORDERED: LIDOCAINE PATCH REMOVAL MC SCH (22:00)
[2023-12-04] MEDS ORDERED: ACETAMINOPHEN INJECTION 100 ML IVPB ONE (23:04)
[2023-12-04] MEDS ORDERED: LIDOCAINE 4% PATCH TP ONE (23:04)
[2023-12-04 23:12] LABS: BASO % 0.8 % (0-2.0); EOS % 3.2 % (0-4.5); HEMATOCRIT 39.7 % (32.4-45.2); HEMOGLOBIN 13.1 GM/dL (10.7-15.3); LYMPH % 23.7 % (8-40); MCH 26.4 pg (25.7-33.7); MCHC 32.9 g/dl (32.0-36.0); MEAN CELL VOLUME 80.1 fl (80-96); MEAN PLT VOLUME 8.2 fl (7.5-11.1); MONO % 9.3 % (3.8-10.2); PLATELET COUNT 166 10^3/uL (134-434); RBC 4.95 M/mm3 (3.60-5.2); RDW 17.5 % (11.6-15.6); WHITE BLOOD COUNT 8.9 K/mm3 (4.0-10.0)
[2023-12-04] MEDS: LIDOCAINE 4% PATCH TP ONE (23:15)
[2023-12-04] MEDS: ACETAMINOPHEN 1000 MG/100 ML BAG IVPB ONE (23:16)
[2023-12-04 23:20] LABS: INR 1.05 (0.83-1.09); PROTHROMBIN TIME (PATIENT) 12.2 SEC (9.7-13.0)
[2023-12-04 23:23] LABS: ACTIVATED PTT 28.2 SECONDS (25.2-36.5)
[2023-12-04 23:23] LABS: EPI CELLS 4 /uL (0-25.1); HYALINE CASTS 0 /uL (0-3.1); URINE APPEARANCE CLEAR; URINE BACTERIA 2 /uL (0-1359); URINE BILIRUBIN NEGATIVE (NEGATIVE); URINE COLOR YELLOW; URINE GLUCOSE (UA) NEGATIVE (NEGATIVE); URINE KETONE NEGATIVE (NEGATIVE); URINE LEUK ESTERASE TRACE (NEGATIVE); URINE NITRITE NEGATIVE (NEGATIVE); URINE PROTEIN NEGATIVE (NEGATIVE); URINE RBC 9 /uL (0-23.9); URINE WBC 16 /uL (0-25.8)
[2023-12-04 23:26] LABS: HCG,QUALITATIVE URINE Negative
[2023-12-04 23:31] LABS: POTASSIUM 4.5 mmol/L (3.5-5.1)
[2023-12-04 23:33] LABS: ALBUMIN 3.2 g/dl (3.4-5.0)
[2023-12-04 23:35] LABS: BLOOD UREA NITROGEN 20.1 mg/dL (7-18)
[2023-12-04 23:36] LABS: CREATININE 0.6 mg/dL (0.55-1.3)
[2023-12-04 23:37] LABS: CALCIUM 8.5 mg/dL (8.5-10.1)
[2023-12-04 23:39] LABS: BILIRUBIN,TOTAL 0.2 mg/dL (0.2-1); TOT PROT 6.7 g/dl (6.4-8.2)
[2023-12-05] MEDS: SODIUM CHLORIDE 0.9% 500 ML INFUS.BAG IV ONE (00:44)
[2023-12-05 01:32] VITALS: BP 100/58; PULSE 60; RESP 16
== END 2023-12-05 03:35 | disposition home or self-care (01) ==
LOC: JER 21:39
PROC: 3E033NZ Introduction of Analgesics, Hypnotics, Sedatives into Peripheral Vein, Percutaneous Approach (ICD-10-PCS; principal; 2023-12-04)
DX: R10.9 Unspecified abdominal pain (principal); R30.0 Dysuria; R39.15 Urgency of urination; R05.9 Cough, unspecified; N89.8 Other specified noninflammatory disorders of vagina
CPT/HCPCS: 36415; 71101-TC-LT-FY; 74177-TC; 80053; 81003; 83605; 83690; 84484; 84703; 85025; 85610; 85730; 86850; 86900; 86901; 87086; 93005; 93010; 96374; 99285-25; J0131; Q9967

== ENCOUNTER 2024-02-10 00:10 | Emergency (ER) | payer MEDICARE, OTHER ==
[2024-02-10 00:20] VITALS: BP 107/67; PULSE 99; RESP 18; TEMP 98.1; BMI 22.4
[2024-02-10 00:43] LABS: EPI CELLS 5 /uL (0-25.1); HYALINE CASTS 0 /uL (0-3.1); PH,URINE 5.5 (5.0-8.0); URINE APPEARANCE CLEAR; URINE BACTERIA 11 /uL (0-1359); URINE BILIRUBIN NEGATIVE (NEGATIVE); URINE COLOR YELLOW; URINE GLUCOSE (UA) NEGATIVE (NEGATIVE); URINE KETONE NEGATIVE (NEGATIVE); URINE LEUK ESTERASE 2+ (NEGATIVE); URINE NITRITE NEGATIVE (NEGATIVE); URINE PROTEIN NEGATIVE (NEGATIVE); URINE RBC 15 /uL (0-23.9); URINE WBC 66 /uL (0-25.8)
[2024-02-10 00:44] LABS: HCG,QUALITATIVE URINE Negative
[2024-02-10] MEDS ORDERED: cefTRIAXone SODIUM 1 GM VIAL ONE (01:08)
[2024-02-10] MEDS ORDERED: LIDOCAINE HCL 1%, 10 MG/ML (20ML VIAL) ONE (01:08)
== END 2024-02-10 01:22 | disposition home or self-care (01) ==
LOC: JER 00:10
DX: N89.8 Other specified noninflammatory disorders of vagina (principal); R53.83 Other fatigue
CPT/HCPCS: 36415; 81003; 84703; 87086; 87491; 87591; 87661; 96372; 99284-25

== ENCOUNTER 2024-03-04 20:47 | Emergency (ER) | payer MEDICARE, OTHER ==
[2024-03-04 20:55] VITALS: BP 116/52; PULSE 72; RESP 18; TEMP 98.4; BMI 23.0
[2024-03-04] MEDS ORDERED: ACETAMINOPHEN 325 MG TABLET (FP) ONE (22:18)
[2024-03-04] MEDS ORDERED: AMOX TR/POT CLAV 875MG/125MG TABLETS (FP) ONE (22:18)
[2024-03-04] MEDS: ACETAMINOPHEN 325 MG TABLET (FP) PO ONE (22:21)
[2024-03-04] MEDS: AMOX TR/POT CLAV 875MG/125MG TABLETS (FP) PO ONE (22:21)
[2024-03-04] MEDS: BENZONATATE 200 MG CAPSULE PO PRN (22:34)
== END 2024-03-04 23:19 | disposition home or self-care (01) ==
LOC: JER 20:47 → JERFT 20:47
DX: J40 Bronchitis, not specified as acute or chronic (principal); R05.9 Cough, unspecified; R09.82 Postnasal drip; R09.81 Nasal congestion; Z20.822 Contact with and (suspected) exposure to COVID-19
CPT/HCPCS: 0241U-QW; 71046-TC-FY; 99284-25

== ENCOUNTER 2024-10-28 22:25 | Emergency (ER) | payer MEDICARE, OTHER ==
[2024-10-28 22:39] VITALS: BP 94/60; PULSE 67; RESP 19; TEMP 98.6; BMI 23.3
[2024-10-28] MEDS ORDERED: ONDANSETRON 4 MG/2 ML VIAL ONE (23:41)
[2024-10-28] MEDS ORDERED: FAMOTIDINE 20 MG/50 ML IVPB 20 MG/50 ML MG IVPB ONE (23:41)
[2024-10-29] MEDS: FAMOTIDINE 20 MG/50 ML IVPB 20 MG/50 ML MG IVPB ONE (00:22)
[2024-10-29] MEDS: LACTATED RINGERS SOLUTION 1000 ML INFUS.BAG IV ONE (00:22)
[2024-10-29] MEDS: ONDANSETRON 4 MG/2 ML VIAL IVPUSH ONE (00:23)
[2024-10-29 00:55] LABS: BASO % 0.5 % (0-2.0); EOS % 1.7 % (0-4.5); HEMATOCRIT 38.5 % (32.4-45.2); HEMOGLOBIN 12.2 GM/dL (10.7-15.3); LYMPH % 27.5 % (8-40); MCH 24.5 pg (25.7-33.7); MCHC 31.6 g/dl (32.0-36.0); MEAN CELL VOLUME 77.6 fl (80-96); MEAN PLT VOLUME 8.8 fl (7.5-11.1); MONO % 9.1 % (3.8-10.2); NEUT % 61.2 % (42.8-82.8); PLATELET COUNT 142 10^3/uL (134-434); RBC 4.97 M/mm3 (3.60-5.2); RDW 17.4 % (11.6-15.6); WHITE BLOOD COUNT 8.6 K/mm3 (4.0-10.0)
[2024-10-29 01:29] LABS: INR 0.99 (0.83-1.09); PROTHROMBIN TIME (PATIENT) 11.2 SEC (9.7-13.0)
[2024-10-29 01:29] LABS: POTASSIUM 4.3 mmol/L (3.5-5.1)
[2024-10-29 01:31] LABS: ALBUMIN 3.2 g/dl (3.4-5.0); CALCIUM 8.4 mg/dL (8.5-10.1)
[2024-10-29 01:32] LABS: ACTIVATED PTT 27.9 SECONDS (25.2-36.5)
[2024-10-29 01:32] LABS: BLOOD UREA NITROGEN 14.4 mg/dL (7-18); MAGNESIUM 2.3 mg/dL (1.8-2.4)
[2024-10-29 01:34] LABS: CREATININE 0.6 mg/dL (0.55-1.3)
[2024-10-29 01:36] LABS: BILIRUBIN,TOTAL 0.3 mg/dL (0.2-1); TOT PROT 6.3 g/dl (6.4-8.2)
[2024-10-29 02:29] LABS: HIV INTERPRETATION NEGATIVE (NEGATIVE)
== END 2024-10-29 00:45 | disposition left against medical advice (07) ==
LOC: JER 22:25
PROC: 3E033GC Introduction of Other Therapeutic Substance into Peripheral Vein, Percutaneous Approach (ICD-10-PCS; principal; 2024-10-29)
PROC: 3E033GC Introduction of Other Therapeutic Substance into Peripheral Vein, Percutaneous Approach (ICD-10-PCS; 2024-10-29)
DX: R11.2 Nausea with vomiting, unspecified (principal); R10.13 Epigastric pain
CPT/HCPCS: 36415; 71045-TC-FY; 80053; 83690; 83735; 84484; 85025; 85610; 85730; 86803; 87389; 93005; 93010; 96365; 96375; 99285-25